=== PATIENT | female | born 1940 | race Caucasian/White ===

== ENCOUNTER 2025-06-04 15:37 | Emergency (ER) | payer OTHER, SELFPAY ==
[2025-06-04 15:46] VITALS: BP 140/89; PULSE 72; RESP 12; TEMP 36.5; O2SAT 95; BMI 24.4
--- NOTE | 2025-06-04 15:55 | DI.CT.S_ITS ---
PROCEDURE: CT ABDOMEN PELVIS W CON
[2025-06-04 16:28] LABS: Add Manual Diff / Slide Review NO; Hematocrit 40.9 % (36-46); Hemoglobin 14.2 g/dL (12.0-16.0); Lymphocytes Absolute Auto 1100 /uL (1100-4500); Mean Corpuscular HGB Conc 34.6 % (30-36); Mean Corpuscular Hemoglobin 34.7 PG (26-34); Mean Corpuscular Volume 100.2 fL (80-100); Platelet Count 306 X10^3/uL (150-400)
[2025-06-04 16:34] LABS: Alanine Aminotransferase 19 IU/L (<35); Albumin 5.0 g/dL (3.5-5.0); Albumin Globulin Ratio 1.6 (1.0-2.8); Alkaline Phosphatase 65 U/L (38-126); Blood Urea Nitrogen 14 mg/dL (7-17); Calcium 9.5 mg/dL (8.4-10.2); Carbon Dioxide 25 mmol/L (22-32); Chloride 95 mmol/L (98-107); Estimated Glomerular Filt Rate > 60 mL/min (>60); Globulin 3.1 g/dL (1.7-4.1); Glucose 114 mg/dL (70-99); HEMOLYSIS < 15 (0-50); Potassium 3.2 mmol/L (3.4-5.1); Sodium 133 mmol/L (137-145); Total Protein 8.1 g/dL (6.3-8.2)
[2025-06-04 18:29] VITALS: BP 127/59; PULSE 79; RESP 16; O2SAT 98
[2025-06-04] MEDS: MINERAL OIL 1 EACH ENEMA PR (20:32)
[2025-06-04] MEDS: MAGNESIUM CITRATE 300 ML SOLUTION PO (20:32)
[2025-06-04 20:50] VITALS: BP 138/63; PULSE 64; RESP 18; TEMP 36.7; O2SAT 99
--- NOTE | 2025-06-04 21:37 | ED_ITS ---
HPI - Abdominal Pain
--- NOTE | 2025-06-04 21:37 | ED.ABDPAIN ---
HPI - Abdominal Pain General Chief Complaint: Abdominal Pain Stated Complaint: constipated, sharp pain right hand side Time Seen by Provider: 06/04/25 17:08 Source: patient Mode of arrival: Ambulatory History of Present Illness HPI narrative: 84-year-old female with a lifelong history of chronic constipation presents with constipation again and right lower quadrant discomfort. Patient's last bowel movement was 2 days ago. She denies any other GI or symptoms. No fever chills or other symptoms. Related Data Allergies Allergy/AdvReac Type Severity Reaction Status Date / Time No Known Drug Allergies Allergy Verified 06/04/25 15:47 Review of Systems Review of Systems ROS Unobtainable: All systems reviewed & are unremarkable except as noted in HPI and below Patient History Social History Smoking Status: Never smoker Smoking Status: Never smoker Alcohol type: wine Exam Narrative Exam Narrative: General: Patient appears to be in no acute distress, acting appropriately Head: normocephalic, atraumatic, HEENT: Pupils equal round reactive, eyes tracking well, neck supple, no JVD Heart: regular rate and rhythm, no murmurs, rubs, or gallops heard Lungs: clear to auscultation, no adventitious sounds Abdomen: soft , nontender, nondistended, positive bowel sounds Neurological: no focal neurological signs, moving all extremities well, alert and oriented x3, Psych: good judgment ,good insight, mood is normal. Initial Vital Signs Initial Vital Signs: Vital Signs Temperature 97.7 F 06/04/25 15:46 Pulse Rate 72 06/04/25 15:46 Respiratory Rate 12 06/04/25 15:46 Blood Pressure 140/89 06/04/25 15:46 Pulse Oximetry 95 06/04/25 15:46 Oxygen Delivery Method Room Air 06/04/25 15:46 Course Orders Ordered: Discontinued Medications Magnesium Citrate (Magnesium Citrate 300 Ml Solution) 300 ml PO NOW ONE Stop: 06/04/25 20:06 Last Admin: 06/04/25 20:32 Dose: 300 ml Documented By: TANJA Mineral Oil (Mineral Oil 1 Each Enema) [address] NOW ONE Stop: 06/04/25 20:06 Last Admin: 06/04/25 20:32 Dose: 1 each Documented By: TANJA Ondansetron HCl (Ondansetron 4 Mg/2 Ml Inj) 4 mg IV NOW PRN PRN Reason: Nausea And Vomiting Ondansetron HCl (Ondansetron 4 Mg Odt) 4 mg PO NOW PRN PRN Reason: Nausea And Vomiting Vital Signs Vital signs: Vital Signs - 8 hr 06/04/25 15:46 06/04/25 18:29 06/04/25 20:50 Temperature 97.7 F 98.1 F Pulse Rate 72 79 64 Respiratory Rate 12 16 18 Blood Pressure 140/89 127/59 L 138/63 Pulse Oximetry 95 98 99 Oxygen Delivery Method Room Air Room Air Room Air MDM - Abdominal Pain Lab Data 06/04/25 16:09 06/04/25 16:09 Labs: Lab Results 06/04/25 Range/Units 16:09 WBC 14.2 H (4.5-11.0) X10^3/uL RBC 4.08 (4.0-5.2) X10^6/uL Hgb 14.2 (12.0-16.0) g/dL Hct 40.9 (36-46) % MCV 100.2 H (80-100) fL MCH 34.7 H (26-34) PG MCHC 34.6 (30-36) % RDW 13.3 (11.6-14.8) % Plt Count 306 (150-400) X10^3/uL Neut % (Auto) 85.7 H (50-75) % Lymph % (Auto) 7.8 L (25-40) % [place] % (Auto) 5.9 (3-14) % Eos % (Auto) 0.3 L (2-4) % Baso % (Auto) 0.3 (0-2) % Neut # (Auto) 83087 H (1732-4532) /uL Lymph # (Auto) 1100 (2757-3062) /uL [place] # (Auto) 800 (0-900) /uL Eos # (Auto) 0 (0-450) /uL Baso # (Auto) 0 (0-100) /uL Sodium 133 L (137-145) mmol/L Potassium 3.2 L (3.4-5.1) mmol/L Chloride 95 L (98-107) mmol/L Carbon Dioxide 25 (22-32) mmol/L BUN 14 (7-17) mg/dL Creatinine 0.86 (0.52-1.04) mg/dL Estimated GFR > 60 (>60) mL/min BUN/Creatinine Ratio 16.3 (6-22) Glucose 114 H (70-99) mg/dL Calcium 9.5 (8.4-10.2) mg/dL Total Bilirubin 0.8 (0.2-1.3) mg/dL AST 28 (14-36) IU/L ALT 19 (<35) IU/L Alkaline Phosphatase 65 (38-126) U/L Total Protein 8.1 (6.3-8.2) g/dL Albumin 5.0 (3.5-5.0) g/dL Globulin 3.1 (1.7-4.1) g/dL Albumin/Globulin Ratio 1.6 (1.0-2.8) Imaging Data CT scan - abdomen/pelvis: Radiologist's Impression: Large rectal stool ball concerning for obstipation. Other chronic findings as above. MDM Narrative Medical decision making narrative: 84-year-old female with a history of chronic constipation presents with more constipation in the last 2 days. She is already taking some MiraLax daily as well as senna. Advised to add more fiber to her diet. Also given some magnesium citrate and a mineral oil enema to be used at home. Follow up in the ER if still constipated. Discharge Plan Departure Patient Disposition: Home Clinical Impression: Constipation Qualifiers: Constipation type: other constipation type Qualified Code(s): K59.09 - Other constipation Instructions: Increased Dietary Fiber May Improve Constipation Conditions With Pelvic Karthik, DI for Constipation Activity Restrictions/Additional Instructions: Push hydration and activity and increase fiber in her diet. Go ahead and add fiber supplement to your diet daily. Continue to use senna daily. Use MiraLax as needed. Go ahead and use a Fleet enema and the magnesium citrate right after. Follow up in ER if still being constipated. Stand Alone Forms: Patient Portal/API
== END 2025-06-04 21:49 | disposition home or self-care (01) ==
PROVIDERS: Emergency Medicine; Emergency Provider Family Medicine
DX: K59.09 Other constipation (principal); R10.31 Right lower quadrant pain
CPT/HCPCS: 36415; 51798; 74177; 80053; 85025; 99284; Q9967

== ENCOUNTER 2025-06-05 16:32 | Emergency (ER) | payer OTHER, SELFPAY ==
[2025-06-05 16:37] VITALS: BP 159/79; PULSE 77; RESP 18; TEMP 36.3; O2SAT 97; BMI 24.3
--- NOTE | 2025-06-05 16:43 | DI.RAD.S_ITS ---
PROCEDURE: XR ABDOMEN 1V INDICATIONS: constipation, bowel obstruction TECHNIQUE: One view of the abdomen acquired. COMPARISON: None. FINDINGS: Surgical changes and devices: None. Bowel: Bowel gas pattern is normal. Soft tissues: No suspicious abdominal calcifications. Visualized solid organ contours appear normal in size. Bones: No suspicious bony lesions. IMPRESSION: No acute abnormality. Dictated by: Alejandro Mayo M.D. on 06/05/2025 at 17:17 Approved by: Alejandro Mayo M.D. on 06/05/2025 at 17:17
--- NOTE | 2025-06-05 21:17 | ED.RECABL ---
HPI - Recheck/Abnormal Lab/Rx General Chief Complaint: Recheck/Abnormal Lab/Rx Stated Complaint: constipation Time Seen by Provider: 06/05/25 17:19 Source: patient Mode of arrival: Ambulatory History of Present Illness HPI narrative: 84-year-old woman with a history of recurrent episodes of constipation was seen in the emergency department yesterday with complaints that she has not had a bowel movement for [address] scan showed quite a bit of right-sided stool and a large stool ball in the rectum. She was discharged home with magnesium citrate and an oil enema. Over the course of the night she had a number of episodes of brown watery stool only. She is no longer having any pain, she is passing gas she is now able to void normally. She is concerned that she did not pass more stool and believes that she may still be obstructed. She talked to her primary care physician who recommended she come to the ER for manual disimpaction. Related Data Allergies Allergy/AdvReac Type Severity Reaction Status Date / Time No Known Drug Allergies Allergy Verified 06/04/25 15:47 Review of Systems Review of Systems Narrative: Pertinent positive and negative findings as per HPI Patient History Alcohol type: wine Exam Initial Vital Signs Initial Vital Signs: Vital Signs Temperature 97.4 F L 06/05/25 16:37 Pulse Rate 77 06/05/25 16:37 Respiratory Rate 18 06/05/25 16:37 Blood Pressure 159/79 H 06/05/25 16:37 Pulse Oximetry 97 06/05/25 16:37 Oxygen Delivery Method Room Air 06/05/25 16:37 General: Alert appropriate in no acute distress Respiratory: Able to speak in full sentences, no obvious respiratory distress Abdomen: Soft nontender normal bowel tones Rectal exam: Normal rectum, no stool in the vault Skin: No obvious rashes, warm and dry Neurologic: Grossly intact no obvious asymmetries or abnormalities Psych: appropriate insight and affect, cooperative Course Orders Ordered: ED Orders 06/05/25 16:43 XR abdomen 1V Stat Vital Signs Vital signs: Vital Signs - 8 hr 06/05/25 16:37 Temperature 97.4 F L Pulse Rate 77 Respiratory Rate 18 Blood Pressure 159/79 H Pulse Oximetry 97 Oxygen Delivery Method Room Air MDM - Recheck/Abnormal Lab/Rx MDM Narrative Medical decision making narrative: 84-year-old woman now with no pain, quite a bit of watery stool over the last 12 hours, voiding normally comes in with concerns for continued stool impaction. CT scan from yesterday is reviewed and x-ray from today is compared. She has minimal to no stool in her colon based on her x-ray. She has no stool in her rectum based on physical exam. She and her are completely missed a find that she could have evacuated all of her bowels with only multiple episodes of runny brown brown liquid. I am not sure what to tell them. I again reassured them that with no pain, no difficulty voiding and no stool on rectal exam there was no indication for any additional treatment and seemed like she in fact had evacuated her: Nicely. Reassurance is given and they are discharged home Discharge Plan Departure Patient Disposition: Home Clinical Impression: Constipation Instructions: DI for Constipation Activity Restrictions/Additional Instructions: Thank you for coming in today In comparing the CT scan that you had done yesterday to the x-ray that was done today, you have cleaned out all of the stool that was on the CT scan yesterday. You still have quite a bit of air through your colon but you are no longer constipated. On your rectal exam, you had no stool in your rectum. With history of chronic constipation, a scoop of MiraLax every single day to keep stool soft does make some sense. I would not recommend any additional enemas or laxatives as, based on your physical exam and x-ray today, you are no longer constipated If you find that you are getting worse or develop any new symptoms, please feel free to return to the emergency department for further evaluation. Stand Alone Forms: Patient Portal/API
== END 2025-06-05 21:48 | disposition home or self-care (01) ==
PROVIDERS: Emergency Provider Emergency Medicine
DX: K59.00 Constipation, unspecified (principal)
CPT/HCPCS: 74018; 99281; 99283